=== PATIENT | female | born 1950 | race Caucasian/White ===

== ENCOUNTER 2021-06-25 14:20 | Emergency (ER) | payer OTHER, MEDICARE ==
[2021-06-25 15:29] LABS: BILIRUBIN 1+ mg/dL (NEGATIVE); BLOOD 3+ Ery/uL (NEGATIVE); CLARITY CLOUDY (CLEAR); COLOR YELLOW (YELLOW); GLUCOSE (U) NORMAL (NORMAL); LEUKOCYTES 1+ Leu/uL (NEGATIVE); NITRITE NEGATIVE (NEGATIVE); PROTEIN 2+ mg/dL (NEGATIVE); SPECIFIC GRAVITY >=1.030 (1.001-1.030); UROBILINOGEN 0.2 mg/dL (0.2-1.0); pH 5.5 (5.0-9.0)
[2021-06-25 15:55] LABS: BACTERIA 3+; URINARY RBC TNTC
[2021-06-25 15:56] LABS: CALCIUM OXALATE CRYSTALS MODERATE
[2021-06-25 16:31] LABS: BASOPHIL 0.4 % (0-2); EOSINOPHIL 0.4 % (0-7); HGB 13.3 g/dl (12.5-16.0); LYMPHOCYTE 6.6 % (15-48); MCH 30.4 pg (25.0-31.0); MCHC 31.7 g/dL (32.0-36.0); MCV 96.1 fL (78.0-100.0); MPV 11.2 fL (6.0-9.5); NRBC 0; PLT 240 K/uL (150-400); RBC 4.37 M/uL (4.20-5.40); RDW 13.9 % (11.5-14.0); WBC 9.7 K/uL (4.0-10.5)
[2021-06-25 16:46] LABS: INR 1.33 (0.9-1.2); PROTHROMBIN TIME 15.8 SECONDS (11.8-13.4); PTT 34.6 SECONDS (24.4-34.7)
[2021-06-25 17:00] LABS: LACTIC ACID 1.4 mmol/L (0.4-1.9)
[2021-06-25 17:01] LABS: ALBUMIN 2.6 g/dL (3.4-5.0); BILIRUBIN - TOTAL 0.6 mg/dL (0.2-1.0); BUN/CREAT RATIO (CALC) 29.2 RATIO; C-REACTIVE PROTEIN 13.8 mg/dL (<=0.90); CREATININE 0.65 mg/dL (0.51-0.95); GLOBULIN (CALCULATION) 4.6 g/dL; MAGNESIUM 2.1 mg/dL (1.8-2.4); POTASSIUM 3.6 mmol/L (3.5-5.1); TOTAL PROTEIN 7.2 g/dL (6.4-8.2)
== END 2021-06-25 17:26 | disposition other institution (70) ==
LOC: FER 14:20
PROVIDERS: Emergency Medicine
DX: G91.4 Hydrocephalus in diseases classified elsewhere (principal); Z98.2 Presence of cerebrospinal fluid drainage device; I10 Essential (primary) hypertension; G30.9 Alzheimer's disease, unspecified; F02.80 Dementia in other diseases classified elsewhere, unspecified severity, without behavioral disturbance, psychotic disturbance, mood disturbance, and anxiety; Z20.822 Contact with and (suspected) exposure to COVID-19
CPT/HCPCS: 36415; 36600; 70450; 71250; 80053; 81001; 82550; 82803; 83605; 83615; 83735; 83880; 84145; 84443; 84484; 85025; 85610; 85730; 86140; 87040; 87088; 93005; J1953; J2060; U0002